=== PATIENT | female | born 1945 | race Caucasian/White ===

== ENCOUNTER → 2017-07-20 | Day surgery (SDC) | payer MEDICARE ==
[2017-07-19 14:16] LABS: BASOPHILS % 0.4 % (0.0-1.0); EOSINOPHILS # (AUTO) 0.1 (0.0-0.4); EOSINOPHILS % 1.5 % (0.0-6.0); HEMATOCRIT 36.3 % (34.2-44.1); HEMOGLOBIN 11.3 g/dL (12.0-16.0); LYMPHOCYTES # (AUTO) 1.3 (1.0-3.2); LYMPHOCYTES % 15.9 % (18.0-39.1); MEAN CORPUSCULAR HEMOGLOBIN 27.3 pg (28-32); MEAN CORPUSCULAR HGB CONC 31.1 g/dL (31-35); MEAN CORPUSCULAR VOLUME 87.7 fL (81-99); MONOCYTES # (AUTO) 0.8 (0.2-0.8); MONOCYTES % 9.8 % (4.4-11.3); NEUTROPHILS # (AUTO) 5.9 (2.1-6.9); NEUTROPHILS % 72.2 % (38.7-80.0); PLATELET COUNT 208 x10e3/uL (140-360); RED BLOOD COUNT 4.14 x10e6/uL (3.6-5.1); RED CELL DISTRIBUTION WIDTH 14.6 % (11.7-14.4)
[~2017-07-20] MED LIST: ASPIR 8181 MG PO; BYSTOLIC10 MG PO; CARAFATE1 GM/10 ML PO; FENTANYL CITRATE/PF 100MCG/2 ML INJ ONE; FORTAMET500 MG PO; LEXAPRO20 MG PO; LIDOCAINE HCL 2% LOCAL INJ 5 ML SDV VIAL INJ ONE; METOPROLOL SUCC25 MG PO; MIDAZOLAM HCL 2 MG/2 ML VIAL ONE; MULTIPLE VITAM1 EAC1 PO; PANTOPRAZOLE SO40 MG PO; PROPOFOL IV EMULSION 10 MG/ML 50 ML VIAL ONE; PROTONIX40 MG/ML PO; TEKTURNA HCT 31 EACH PO; TYLENOL WITH C1 EACH PO; VITAMIN E400 UNI2 PO; WELLBUTRIN75 MG PO; ZOFRAN ODT4 MG SL
--- OUTSIDE RECORDS SUMMARY | 2017-07-20 08:13 | XMS REPORT ---
Author [facility] Address Unknown Phone Unavailable Care Team Providers Care Varnish Remover Name Role Phone TATIANA RAMIREZ Unavailable Unavailable SEVERINO ALBERT Unavailable Unavailable Problems This patient has no known problems. Allergies, Adverse Reactions, Alerts This patient has no known allergies or adverse reactions. Medications This patient has no known medications. Results Test Description Test Time Test Comments Text Results Atomic Results Result Comments G I BLEED [place] [address] Patient Name: ROSALINDA MORENO MR #: [id number] : 1945 Age/Sex: 71/F Req #: [id number] [facility] Physician: TATIANA RAMIREZ MD Ordered by: MISAEL WAY MD Report #: [id number] Location: [facility] Room/Bed: [place] [address] Procedure: [id number] NM/G I BLEED Exam Date: 05/17/17 Exam Time: 1300 REPORT STATUS: Signed Tagged-RBC GI Bleed Study Clinical information: 71-year-old female with recurrent GI bleeding. EGD last week showed an ulcer. Now again having bloody stool. Discussion: The patient's own red blood cells were labeled with 25 mCi of technetium-99m pertechnetate using the in vitro method (UltraTag). Dynamic images of the abdomen were obtained through 60 minutes. Distribution of tracer activity appears physiologic throughout the abdomen. No abnormal accumulation of tracer is seen within the gastrointestinal lumen. Impression: No scan evidence of active gastrointestinal bleeding at this time. Signed by : Dr. Stoney Cardoso M.D. on 05/17/2017 6:18 PM Dictated By: STONEY CARDOSO MD 17 Transcribed By: JOSE on 05/17/171817 COPY TO: MISAEL WAY MD CHEST SINGLE (PORTABLE) [place] [address] Patient Name: ROSALINDA MOERNO MR #: [id number] : 1945 Age/Sex: 71/F Req #: [id number] Adm Physician: Ordered by: SRINIVASAN BENITEZ Report #: [id number] Location: ER Room/Bed: Procedure: [id number] DX/CHEST SINGLE (PORTABLE) Exam Date: 05/10/17 Exam Time: 1115 REPORT STATUS: Signed PROCEDURE: A single AP view of the chest. COMPARISON: [facility], , CHEST 2 VIEWS, 07/20/2012, 14:36. INDICATIONS: NEAR SYNCOPE, BLACK STOOLS FINDINGS: Lines/tubes: None. Lungs: The lungs are well inflated and clear. There is no evidence of pneumonia or pulmonary edema. Pleura: There is no pleural effusion or pneumothorax. Heart and mediastinum: Cardiac silhouette is unremarkable. Pulmonary vasculature is normal. Bones: No acute bony abnormality. IMPRESSION: 1. No acute cardiopulmonary abnormalities. Samaria Mason M.D. Dictated by: Samaria Mason M.D. on 05/10/2017 at 11:45 Electronically approved by: Samaria Mason M.D. on 05/10/2017 at 11:45 Dictated By: SAMARIA MASON MD 1145 Transcribed By: MIKE on 05/10/17 1145 COPY TO: SRINIVASAN BENITEZ
--- NOTE | 2017-07-20 13:09 | Operative Report ---
DATE OF PROCEDURE: July 20, 2017 REFERRING PHYSICIAN: Dr. Naomie Juares PROCEDURE PERFORMED: Esophagogastroduodenoscopy with biopsies. INDICATIONS FOR EGD: History of anastomotic ulcer, patient is status post Mallory-en-Y, and history of melena. MEDICATION: Patient was done under MAC. Please see anesthesiologist's note. PROCEDURE: With the patient in the left lateral decubitus position, the flexible fiberoptic Olympus gastroscope was introduced into the esophagus under direct visualization without any difficulty. The esophagus appeared to be within normal limits. The scope was then advanced with ease into the stomach. The Mallory-en-Y anastomosis was noted and was intact. There was some focal nodularity at the anastomosis and that was biopsied. The previously described ulcer appears to have healed. Enteric loop was patent. The scope was subsequently withdrawn. Patient tolerated the procedure well. IMPRESSION 1. Normal esophagus. 2. Status post Mallory-en-Y, anastomosis intact. 3. Focal nodularity anastomosis, biopsied. Previously described ulcer well healed. PLAN: Follow up histology. Continue current therapy. Job#: [id number] RI cc:NAOMIE JUARES MD
== END | disposition home or self-care (01) ==
LOC: OR 08:10
PROVIDERS: ATTEND Internal Medicine Gastroenterology
DX: D64.9 Anemia, unspecified (principal); K29.50 Unspecified chronic gastritis without bleeding; K25.9 Gastric ulcer, unspecified as acute or chronic, without hemorrhage or perforation; Z98.84 Bariatric surgery status; K31.89 Other diseases of stomach and duodenum; K21.9 Gastro-esophageal reflux disease without esophagitis; E11.9 Type 2 diabetes mellitus without complications; I10 Essential (primary) hypertension; F32.9 Major depressive disorder, single episode, unspecified; Z01.812 Encounter for preprocedural laboratory examination
CPT/HCPCS: 36415 ×2; 43239; 82948; 85025; J2001; J2250

== ENCOUNTER → 2017-10-18 | Outpatient (CLI) | payer MEDICARE ==
[~2017-10-18] MED LIST changes: -FENTANYL CITRATE/PF 100MCG/2 ML INJ ONE; -LIDOCAINE HCL 2% LOCAL INJ 5 ML SDV VIAL INJ ONE; -MIDAZOLAM HCL 2 MG/2 ML VIAL ONE; -PROPOFOL IV EMULSION 10 MG/ML 50 ML VIAL ONE
--- NOTE | 2017-10-21 08:57 | Diagnostic Imaging Report ---
#[id number] - [id number] #BILATERAL DIGITAL SCREENING MAMMOGRAM WITH CAD: 10/18/2017 CLINICAL: Routine screening. Comparison is made to exams dated: 11/26/2015 mammogram and 09/06/2014 mammogram - [facility]. Current study contains 4 films. The tissue of both breasts is heterogeneously dense. This may lower the sensitivity of mammography. Current study was also evaluated with a Computer Aided Detection (CAD) system. There are benign calcifications in both breasts. There are scar markers on both breasts. Vascular calcifications. No significant masses, calcifications, or other findings are seen in either breast. There has been no significant interval change. IMPRESSION: BENIGN There is no mammographic evidence of malignancy. A 1 year screening mammogram is recommended. The patient will be notified by letter of the results. eFr Hood Jr., D.O. cw/:10/20/2017 12:12:58 Analyzer Sales: Marie GALDAMEZ(Marcos)(M), [facility] letter sent: Compared to Prior B9 Mammogram BI-RADS: 2 Benign
== END ==
LOC: MAMMO 12:44
PROVIDERS: ATTEND Internal Medicine
DX: Z12.31 Encounter for screening mammogram for malignant neoplasm of breast (principal)
CPT/HCPCS: 77067

== ENCOUNTER → 2018-02-01 | Outpatient (CLI) | payer MEDICARE ==
--- NOTE | 2018-02-01 11:50 | Diagnostic Imaging Report ---
PROCEDURE:X-RAY ABDOMEN - KUB COMPARISON:None. INDICATIONS:PREVIOUS BLADDER INFECTION, CHECKING FOR STONES FINDINGS: Bowel gas partially obscures bilateral kidneys. There is a 2 mm calcification overlying the left kidney. No other calcifications seen overlying the urinary system. There is abundant stool in the colon. Non-obstructive bowel gas pattern. Status post cholecystectomy. Post surgical anastomotic changes in the left lower abdomen. No acute osseous abnormality. CONCLUSION: Possible 2 mm left renal stone. Dictated by: TAMI GUY M.D. on 02/01/2018 at 11:56 Electronically approved by: TAMI GUY M.D. on 02/01/2018 at 11:56
== END ==
LOC: RAD 11:03
PROVIDERS: ATTEND Urology
DX: N20.0 Calculus of kidney (principal)
CPT/HCPCS: 74018

== ENCOUNTER 2018-05-06 20:27 | Inpatient (IN) | payer MEDICARE, OTHER ==
[~2018-05-06] VITALS: Ht 167.6 cm; Wt 68.5 kg
[2018-05-06] MEDS: CLONIDINE HCL 0.1 MG TAB PO PRN (11:59)
[2018-05-06] MEDS ORDERED: SODIUM CHLORIDE 0.9% 1000ML 1,000 ML ONE ×2 (20:33→21:56)
[2018-05-06] MEDS ORDERED: SODIUM CHLORIDE 0.9% 1000ML 1,000 ML IV STA (20:34)
[2018-05-06] MEDS ORDERED: DILTIAZEM HCL 5 MG/ML 5 ML VIAL IV STA (20:34)
[2018-05-06] MEDS ORDERED: DILTIAZEM HCL VIAL 5 ML ONE (20:35)
[2018-05-06] MEDS ORDERED: ASPIRIN 81 MG CHEW TAB PO ONE (20:45)
[2018-05-06 21:02] LABS: BASOPHILS # (AUTO) 0.1 (0.0-0.1); BASOPHILS % 0.5 % (0.0-1.0); EOSINOPHILS # (AUTO) 0.1 (0.0-0.4); EOSINOPHILS % 0.7 % (0.0-6.0); HEMATOCRIT 36.1 % (34.2-44.1); HEMOGLOBIN 11.8 g/dL (12.0-16.0); LYMPHOCYTES % 28.3 % (18.0-39.1); MEAN CORPUSCULAR HGB CONC 32.7 g/dL (31-35); MEAN CORPUSCULAR VOLUME 85.7 fL (81-99); MONOCYTES % 9.6 % (4.4-11.3); NEUTROPHILS # (AUTO) 6.4 (2.1-6.9); NEUTROPHILS % 60.6 % (38.7-80.0); PLATELET COUNT 252 x10e3/uL (140-360); RED BLOOD COUNT 4.21 x10e6/uL (3.6-5.1); RED CELL DISTRIBUTION WIDTH 14.4 % (11.7-14.4)
[2018-05-06 21:10] LABS: INR 0.95; PARTIAL THROMBOPLASTIN TIME 27.1 seconds (23.8-35.5); PROTHROMBIN TIME 13.6 seconds (11.9-14.5)
[2018-05-06] MEDS ORDERED: AMIODARONE 900MG 500 ML IV ONE (21:15)
[2018-05-06] MEDS ORDERED: AMIODARONE HCL 150MG 100 ML IV ONE (21:15)
[2018-05-06] MEDS ORDERED: AMIODARONE HCL 100 ML IV ONE (21:16)
[2018-05-06 21:19] LABS: ALBUMIN 4.1 g/dL (3.5-5.0); ALBUMIN/GLOBULIN RATIO 1.6 (0.8-2.0); ANION GAP 18.8 mmol/L (8-16); CALCIUM 9.7 mg/dL (8.4-10.2); CREATININE, SERUM 1.16 mg/dL (0.57-1.11); MAGNESIUM 1.5 MG/DL (1.3-2.1); POTASSIUM 3.8 mmol/L (3.5-5.1)
--- NOTE | 2018-05-06 21:27 | Diagnostic Imaging Report ---
EXAMINATION: CHEST SINGLE (PORTABLE) INDICATION: Tachycardia COMPARISON: None FINDINGS: AP view TUBES and LINES: None. LUNGS: Lungs are well inflated. Lungs are clear. There is no evidence of pneumonia or pulmonary edema. PLEURA: No pleural effusion or pneumothorax. HEART AND MEDIASTINUM: The cardiomediastinal silhouette is unremarkable. BONES AND SOFT TISSUES: No acute osseous lesion. Soft tissues are unremarkable. UPPER ABDOMEN: No free air under the diaphragm. IMPRESSION: No acute thoracic abnormality. Signed by: DR. Arnel Wilson MD on 05/06/2018 9:24 PM
[2018-05-06] MEDS ORDERED: AMIODARONE 900MG 500 ML IV SCH (21:30)
[2018-05-06 21:39] LABS: CREATINE KINASE MB 1.3 ng/mL (0-5.0); THYROID STIMULATING HORMONE 1.193 uIU/mL (0.350-4.940)
[2018-05-06] MEDS ORDERED: MIDAZOLAM HCL 2 MG/2 ML VIAL ONE (21:54)
[2018-05-06 21:55] LABS: BILIRUBIN,URINE NEGATIVE (NEGATIVE); CLARITY,URINE CLEAR (CLEAR); COLOR,URINE YELLOW (YELLOW); KETONES,URINE TRACE (NEGATIVE); LEUKOCYTE ESTERASE ,URINE NEGATIVE (NEGATIVE); NITRITE,URINE NEGATIVE (NEGATIVE); PROTEIN,URINE DIPSTICK NEGATIVE (NEGATIVE); URINE UROBILINOGEN 0.2 mg/dL (0.2 - 1)
[2018-05-06] MEDS ORDERED: BIVALRIUDIN 250 MG/VIAL VIAL IV ONE (21:55)
[2018-05-06] MEDS ORDERED: FENTANYL CITRATE/PF 100MCG/2 ML INJ ONE (21:55)
[2018-05-06] MEDS ORDERED: SODIUM CHLORIDE 0.9% 50ML 0 ML ONE (21:55)
[2018-05-06] MEDS ORDERED: LIDOCAINE HCL 2% LOCAL 20 ML VIAL ONE (21:55)
[2018-05-06] MEDS ORDERED: NITROGLYCERIN/D5W 200 MCG/ML 0 ML ONE (21:56)
[2018-05-06] MEDS ORDERED: IOPAMIDOL 370 MG/ML 200 ML INFUS..BTL INJ ONE (21:56)
[2018-05-06] MEDS ORDERED: HEPARIN SOD/SOD CHLORIDE 2,000 ML ONE (21:56)
[2018-05-06 22:03] LABS: BACTERIA,URINE RARE /HPF; EPITHELIAL CELLS,URINE FEW /LPF; RBC,URINE 0-5 /HPF (0-5); WBC,URINE (MAN) 0-5 /HPF (0-5)
[2018-05-06 22:04] LABS: MUCUS,URINE FEW (RARE)
[2018-05-06 23:00] VITALS: BP 151/104
[2018-05-06] MEDS ORDERED: HYDROCODONE/APAP 5MG-325MG TAB PO PRN (23:00)
[2018-05-06] MEDS ORDERED: ZOLPIDEM TARTRATE 5 MG TAB PO PRN (23:00)
[2018-05-06] MEDS ORDERED: ONDANSETRON HCL INJ 2 MG/ML VIAL IV PRN (23:00)
[2018-05-06] MEDS: SODIUM CHLORIDE 0.9% 1000ML 1,000 ML IV SCH (23:00)
[2018-05-06 23:02] VITALS: BP 151/104
[2018-05-06 23:25] VITALS: BP 160/114
[2018-05-06 23:40] VITALS: BP 171/111
[2018-05-06 23:55] VITALS: BP 157/85
[2018-05-07] VITALS (87 sets, daily range): BP systolic 101–162; BP diastolic 47–111
--- NOTE | 2018-05-07 00:38 | Consultation ---
DATE OF CONSULTATION: May 06, 2018 CARDIOLOGY CONSULTATION REASON FOR CONSULTATION: Chest pain, AFib with RVR and ischemic EKG changes. HISTORY OF PRESENT ILLNESS: Ms. 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 The patient was in her usual state of health up until earlier today. 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 The patient also reported subjective palpitations. She came into the emergency room where she was noted to be in AFib with RVR with diffuse 4 to 5-mm ST segment depression throughout with a heart rate in the 170s and blood pressure 70s/40s. She was given IV fluid bolus, started her on amiodarone drip, which has slowed down her heart rate and improved her subjective chest pain symptoms; however, still appears to have some dynamic inferolateral T-wave changes. Emergent cardiac consultation was obtained and visiting with the patient. We had a long discussion today in terms of differential diagnosis as well as management options and we will be shortly proceeding with emergent cardiac catheterization on account of her symptoms. Her hemodynamics are little bit better with blood pressure 90s/50s with heart rates in the 120s range. PAST MEDICAL HISTORY 1. Hypertension, essential. 2. Hypercholesterolemia. 3. Type 2 diabetes. 4. 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 Hunter in September of 2016. PAST SURGICAL HISTORY 1. History of hysterectomy in 1994. 2. History of gastric bypass surgery in 2005. 3. History of appendectomy in 1963. 4. History of breast biopsies in 1979. FAMILY HISTORY: Mother at 78 with COPD complications. Father at the age of 66 from heart attack and was a heavy smoker. SOCIAL HISTORY: She is . She is lifelong nonsmoker. Denies any alcohol or illicit drug use. 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 ALLERGIES: No known drug allergies. CURRENT MEDICATIONS: 1. Metoprolol 25 mg b.i.d. 2. Aspirin 81 mg daily. 3. Metformin 500 mg b.i.d. 4. Wellbutrin 150 mg daily. REVIEW OF SYSTEMS GENERAL: Positive for fatigue, malaise, and generalized weakness. Denies any fevers or chills. HEENT: Has lightheadedness. No headaches, visual complaints, or sore throat. RESPIRATORY: Denies any pleuritic chest pain. Has shortness of breath. CARDIOVASCULAR: As per HPI. GI: Denies any abdominal pain, bright red blood per rectum, melena, or hematemesis. HEMATOLOGY: Denies any easy bruising or bleeding. ID: No known infectious issues. ENDOCRINE: No heat or cold intolerance. NEUROLOGIC: Denies any focal weakness, numbness, tingling, seizures, headache, TIA or stroke. The remainder of the review of systems is negative, otherwise as mentioned. PHYSICAL EXAMINATION VITAL SIGNS: Height of 5 feet 4 inches, weight of approximately 140 pounds, blood pressure was 100s/60s, pulse currently in the 120s, respiratory rate of 18, O2 sat 97% on room air. GENERAL: This is a well-nourished, well-developed lady who is currently in mild distress. HEENT: Normocephalic and atraumatic. Pupils are equal, round, and reactive to light. Extraocular movements are intact. Oropharynx is clear. NECK: No elevation of jugular venous pulsation. No carotid bruits. CARDIOVASCULAR: Irregularly irregular rate and rhythm. Normal S1 and S2. A soft 2/6 systolic murmur at the left lower sternal border. LUNGS: Decreased bibasilar breath sounds. ABDOMEN: Soft, nontender, and nondistended. Normoactive bowel sounds. BACK: No costovertebral angle tenderness. EXTREMITIES: Warm with 1 to 2+ bilateral femoral pulses, 1+ pedal pulses, and 1+ radial pulses. PSYCH: Normal fluent speech. Little bit anxious. No depression. LAB DATA: Pending. DIAGNOSTIC DATA: EKGs reviewed. Initial EKG reveals atrial fibrillation with rapid ventricular response and diffuse [address] depression and elevation in I and aVL concerning for diffuse subendocardial ischemia perhaps left main equivalent CAD. IMPRESSION 1. Unstable angina/acute coronary syndrome type clinical picture with high risk features of hypotension, near syncope and EKG concerning for multi-vessel CAD versus left main disease. 2. SVT, currently with AFib with RVR. 3. History of AV sissy reentry tachycardia ablation. 4. Type 2 diabetes. 5. Positive family history of coronary disease in the father. PLAN/RECOMMENDATIONS 1. From a cardiovascular standpoint in light of her very significant EKG changes, we will proceed with urgent cardiac catheterization to elucidate for the presence of clinically significant coronary artery disease. 2. After establishing her coronary status, we will then focus our attention towards her rhythm issues. 3. In the meantime, we will continue amiodarone therapy. 4. Aggressive risk factor modification and medical therapy. 5. Further plans/recommendations to follow. Job#: [id number] DOMINICK
[2018-05-07] MEDS ORDERED: PNEUMOCOCCAL VACCINE POLYVALENT 23 MCG/0.5 ML VIAL IM ONE (01:00)
[2018-05-07] MEDS ORDERED: AMIODARONE 900MG 500 ML IV SCH (03:30)
[2018-05-07 04:55] LABS: BASOPHILS % 0.4 % (0.0-1.0); EOSINOPHILS % 0.6 % (0.0-6.0); HEMATOCRIT 33.1 % (34.2-44.1); HEMOGLOBIN 10.5 g/dL (12.0-16.0); LYMPHOCYTES # (AUTO) 1.4 (1.0-3.2); LYMPHOCYTES % 20.9 % (18.0-39.1); MEAN CORPUSCULAR HEMOGLOBIN 27.5 pg (28-32); MEAN CORPUSCULAR HGB CONC 31.7 g/dL (31-35); MEAN CORPUSCULAR VOLUME 86.6 fL (81-99); MONOCYTES # (AUTO) 0.7 (0.2-0.8); MONOCYTES % 10.6 % (4.4-11.3); NEUTROPHILS # (AUTO) 4.5 (2.1-6.9); NEUTROPHILS % 67.2 % (38.7-80.0); RED BLOOD COUNT 3.82 x10e6/uL (3.6-5.1); RED CELL DISTRIBUTION WIDTH 14.5 % (11.7-14.4)
[2018-05-07 04:57] LABS: PLATELET COUNT 171 x10e3/uL (140-360)
[2018-05-07 05:25] LABS: CREATINE KINASE MB 1.9 ng/mL (0-5.0)
[2018-05-07 05:49] LABS: ALANINE AMINOTRANSFERASE 9 IU/L (0-55); ALBUMIN 3.4 g/dL (3.5-5.0); ALBUMIN/GLOBULIN RATIO 1.5 (0.8-2.0); ALKALINE PHOSPHATASE 62 IU/L (40-150); ANION GAP 14.4 mmol/L (8-16); BLOOD UREA NITROGEN 17 mg/dL (7-26); BUN/CREATININE RATIO 20 (6-25); CALCIUM 8.4 mg/dL (8.4-10.2); CARBON DIOXIDE 23 mmol/L (22-29); CHLORIDE 102 mmol/L (98-107); CHOL/HDL RATIO 3.1 (3.0-3.6); CHOLESTEROL 161 MD/DL (0-199); CREATININE, SERUM 0.83 mg/dL (0.57-1.11); EST GLOMERULAR FILTRATION RATE > 60 ML/MIN (60-); GLUCOSE 163 mg/dL (74-118); HDL CHOLESTEROL 52 MG/DL (40-60); LDL CHOLESTEROL 94 MG/DL (60-130); POTASSIUM 3.4 mmol/L (3.5-5.1); SODIUM 136 mmol/L (136-145); TRIGLYCERIDES 74 MG/DL (0-149)
[2018-05-07] MEDS ORDERED: SUCRALFATE 1 GM/10 ML SUSP PO SCH (09:00)
[2018-05-07] MEDS: BUPROPION HCL 75 MG TAB PO SCH ×2 (09:10→16:47)
[2018-05-07] MEDS: PANTOPRAZOLE SOD 40 MG TABEC PO SCH ×2 (09:10→16:47)
[2018-05-07] MEDS: METOPROLOL TARTRATE 25 MG TAB PO SCH ×3 (09:10→18:51)
[2018-05-07] MEDS: MULTIVITAMINS/MINERALS TAB PO SCH (09:10)
[2018-05-07] MEDS: ESCITALOPRAM OXALATE 10 MG TAB PO SCH (09:20)
[2018-05-07] MEDS: SODIUM CHLORIDE 0.9% 1000ML 1,000 ML IV SCH (09:30)
[2018-05-07] MEDS ORDERED: DEXTROSE 50% SYRINGE 50 ML IV PRN (10:45)
[2018-05-07] MEDS ORDERED: POTASSIUM CHLORIDE 20 MEQ TAB CR PO ONE ×2 (10:46→11:30)
--- NOTE | 2018-05-07 12:54 | History and Physical ---
PRIMARY CARE PHYSICIAN: Dr. Naomie Morales. MACHINE EDGE BANDER: Dr. Huseyin Gallo. CHIEF COMPLAINT: Atrial fibrillation with rapid ventricular rate response associated with EKG changes and chest pain. HISTORY OF PRESENT ILLNESS: This is a 72-year-old female came into the hospital with chest pain, atrial fibrillation with RVR and ischemic EKG changes. The patient has history of hypertension, type 2 diabetes and prior history of AV sissy reentry tachycardia and SVT with the previous AV sissy reentry ablation on September 23, 2016. The patient was doing well until she had symptoms of substernal chest pain, pressure, tightness, heaviness and diaphoretic, very weak, which brought the patient to the hospital. In the emergency room, the patient noticed to have atrial fibrillation with rapid rate and she will have diffuse [address] segment depression. Blood pressure was diminished in the 70s to 80s systolic with heart rate in the 171 to 180s beats per minute. The patient did receive IV bolus of fluid. IV amiodarone started. She underwent cardiac catheterization done. Ejection fraction approximately 50%. There is no intervention since there is no critical stenosis. The patient is otherwise stable at this time. She remained in ICU on amiodarone drip. PAST MEDICAL HISTORY: Essential hypertension, dyslipidemia, diabetes type 2, SVT with previous ablation with in September 2016. It was AV-sissy reentry tachycardia. PAST SURGICAL HISTORY: Status post hysterectomy is 1994, gastric bypass surgery in 2005, appendectomy in 1963. Breast biopsy benign in 1979. FAMILY HISTORY: Significant for coronary disease in her father, who was however a smoker along with her mother as well. SOCIAL HISTORY: Patient does not smoke or use alcohol. No recreational drug use. 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 PHYSICAL EXAMINATION VITAL SIGNS: Temperature is 98, blood pressure 111/88, pulse rate 57 on amiodarone drip, respirations 16, saturation 98% on room air. GENERAL: The patient is not in acute distress. She is awake. HEENT: Normocephalic, atraumatic. NECK: Supple grossly. PULMONARY: Diminished breath sounds; however, without any wheezing or rales. CARDIOVASCULAR: Some bradycardia sinus rhythm on beta cherie and amiodarone drip at this time. NEUROLOGIC: No gross focal deficit. LABORATORY: Sodium 136, potassium 3.4, chloride 102, bicarb 23, BUN 17, creatinine 0.8, and glucose 163. WBC 6.7, hemoglobin 10.5, hematocrit 3.1, and platelets is 171. IMPRESSION 1. Substernal chest pain with EKG changes as mentioned above status post cardiac catheterization. No PCI. No critical stenosis of coronary arteries. Ejection fraction 60%. 2. Atrial fibrillation with rapid ventricular rate response, ongoing treatment now. The patient has bradycardia secondary to medication treatment, asymptomatic; however. 3. Multiple chronic baseline problems including previous AV sisys ablation with SVT. 4. Diabetes type 2. 5. Hypertension. PLAN: Continue current management. We will followup on recommendations. Patient may need anticoagulant therapy. We will continue with cardiac medication per Dr. Huseyin Gallo and we will check the patient's thyroid function test as well. The patient will remain in hospital at this time. Job#: [id number] FRANTZ
[2018-05-07] MEDS: INSULIN LISPRO 100 UNIT/1 ML 3ML VIAL SQ SCH ×3 (13:00→20:40)
[2018-05-07 13:57] LABS: CREATINE KINASE MB 1.7 ng/mL (0-5.0)
[2018-05-07] MEDS: DRONEDARONE 400 MG TAB PO SCH (16:48)
[2018-05-07] MEDS: APIXAB 2.5 MG TABLET PO SCH (16:49)
--- NOTE | 2018-05-07 19:11 | Consultation ---
DATE OF CONSULTATION: May 07, 2018 REASON FOR CONSULTATION: AFib, rapid ventricular response. HISTORY: Ms. Gutiérrez is a pleasant 72-year-old woman, known to me from before when she had AVNRT and was successfully ablated. She came in last night with AFib, rapid ventricular response, and EKG changes which appears to be a demand ischemia. Dr. Huseyin Gallo performed an emergency cardiac catheterization, which showed distal disease, but no acute PR or plaque rupture. She is back in normal sinus rhythm and feeling much better. PAST MEDICAL HISTORY: AVNRT, distal coronary artery disease, atrial fibrillation, hypertension. SOCIAL HISTORY: No drugs or smoking. FAMILY HISTORY: Negative for or atrial fibrillation. REVIEW OF SYSTEMS: As above and otherwise negative for fevers, chills, loss of vision, blurry vision, ear pain, ear discharge, headache, numbness. Positive for chest pain, palpitation. Negative for cough, sputum, nausea, vomiting, dysuria, frequency, rash, bruise, bleeding, clots, anxiety, depression, heat or cold intolerance. PHYSICAL EXAMINATION VITAL SIGNS: Blood pressure 125/78, heart rate is 68 beats per minute. GENERAL: Patient is lying in bed in no apparent distress. NECK: No lymphadenopathy. Thyroid exam is normal. CARDIOVASCULAR: S1, S2. LUNGS: Clear bilaterally. ABDOMEN: Soft, benign. EXTREMITIES: Warm and dry. NEURO: Nonfocal. SKIN: No new rash. PSYCH: No anxiety or depression. Current EKGs is normal sinus rhythm. EKG from last night sowed AFib, rapid ventricular response and EKG changes. ASSESSMENT AND PLAN: A 72-year-old woman with atrial fibrillation, rapid ventricular response, CHADS-VASc of 4, came in with atrial fibrillation, highly symptomatic. She is appropriately started on Multaq and Eliquis and currently feeling better due to her distal coronary artery disease and rapid ventricular response, which made her very symptomatic and caused demand ischemia as evident on EKG. She would benefit from a more definitive therapy, especially now that it is in the early stages of her AFib. I discussed this with Dr. Huseyin Gallo and I discussed this with patient. In the meantime, we will keep her on metoprolol, Multaq, and Eliquis. I will go ahead and set her up for pulmonary vein isolation and I discussed the risks and benefits with her. She understands and wants to proceed. In summary, continue metoprolol, Multaq, Eliquis. We will do outpatient pulmonary vein isolation. Job#: [id number] PATY
[2018-05-07] MEDS: ACETAMINOPHEN 325 MG TAB PO PRN (20:42)
[2018-05-08] VITALS: BP 161/83
[2018-05-08 00:16] VITALS: BP 149/62
[2018-05-08] MEDS: CLONIDINE HCL 0.1 MG TAB PO PRN (05:15)
[2018-05-08] MEDS: ACETAMINOPHEN 325 MG TAB PO PRN (05:20)
[2018-05-08 05:26] VITALS: BP 169/79
[2018-05-08 06:15] LABS: BASOPHILS % 0.4 % (0.0-1.0); EOSINOPHILS # (AUTO) 0.1 (0.0-0.4); EOSINOPHILS % 1.3 % (0.0-6.0); HEMATOCRIT 33.7 % (34.2-44.1); HEMOGLOBIN 10.4 g/dL (12.0-16.0); LYMPHOCYTES # (AUTO) 1.5 (1.0-3.2); LYMPHOCYTES % 27.6 % (18.0-39.1); MEAN CORPUSCULAR HEMOGLOBIN 26.7 pg (28-32); MEAN CORPUSCULAR HGB CONC 30.9 g/dL (31-35); MEAN CORPUSCULAR VOLUME 86.6 fL (81-99); MONOCYTES # (AUTO) 0.6 (0.2-0.8); MONOCYTES % 10.8 % (4.4-11.3); NEUTROPHILS # (AUTO) 3.2 (2.1-6.9); NEUTROPHILS % 59.7 % (38.7-80.0); PLATELET COUNT 162 x10e3/uL (140-360); RED BLOOD COUNT 3.89 x10e6/uL (3.6-5.1); RED CELL DISTRIBUTION WIDTH 14.4 % (11.7-14.4)
[2018-05-08 06:32] LABS: ANION GAP 11.9 mmol/L (8-16); BLOOD UREA NITROGEN 13 mg/dL (7-26); BUN/CREATININE RATIO 16 (6-25); CALCIUM 8.7 mg/dL (8.4-10.2); CARBON DIOXIDE 25 mmol/L (22-29); CHLORIDE 106 mmol/L (98-107); CREATININE, SERUM 0.79 mg/dL (0.57-1.11); EST GLOMERULAR FILTRATION RATE > 60 ML/MIN (60-); GLUCOSE 127 mg/dL (74-118); POTASSIUM 3.9 mmol/L (3.5-5.1); SODIUM 139 mmol/L (136-145)
[2018-05-08 08:23] VITALS: BP 142/74
--- NOTE | 2018-05-08 08:26 | Operative Report ---
DATE OF PROCEDURE: May 06, 2018 PROCEDURES PERFORMED 1. Left heart cardiac catheterization with coronary angiography. 2. Left ventriculography. INDICATION FOR PROCEDURE: This is a 72-year-old lady with a history of hypertension, type 2 diabetes, hypercholesterolemia, and positive family history of coronary artery disease with father dying of heart attack in his 60s, who presents to this institution with hypotension, atrial fibrillation with RVR and diffuse ST depression throughout the precordial leads concerning for perhaps left main STEMI equivalent. Patient has significant chest pain and tightness, concerning for angina. DESCRIPTION OF PROCEDURE: After risks, benefits, pros and cons of today's procedure were explained, patient agreed to proceed. Patient was brought to the cardiac catheterization laboratory in an urgent/emergent fashion and the right groin was prepped and draped in the usual sterile fashion. A 1% lidocaine solution was used to numb the right groin region. Access to the right femoral artery was obtained and a 4-[place] femoral sheath was placed. Selective coronary angiography of the [place] left and right coronary arteries was performed with a JL-4 and 3DRC diagnostic catheters respectively. Afterwards, an angled pigtail catheter was placed into the ventricle for ventriculography and hemodynamic assessment of ventricular filling pressures. Coronary angiography revealed just very mild and minimal disease and there is no clear-cut culprit artery. Left ventriculography reveals normal left ventricular function and there was no segmental wall. At conclusion of the case due to the presence of a very small 4-[place] sheath femoral sheath, we decided to utilize manual compression and the 4-[place] femoral sheath was removed and manual compression was applied successfully achieving hemostasis. COMPLICATIONS: None. ESTIMATED BLOOD LOSS: None. FINDINGS 1. Left main is angiographically normal and gives rise to an LAD and circumflex branch. 2. The LAD has just very mild luminal irregularities at the apical segment of the vessels. The remainder of this vessel and its branches are with no significant disease. 3. Left circumflex artery gives rise to a large bifurcating anterolateral/mid marginal branch with just mild proximal disease. The remainder of this vessel and its branches are angiographically normal. 4. The RCA is large, dominant, gives rise to the right PDA and 3 right PLV branches. This vessel and its branches are angiographically normal. 5. Left ventricular ejection fraction was 60%-65% with end-diastolic pressure of 18 mmHg. There is no significant LV to aortic pullback gradient. PLAN/RECOMMENDATIONS 1. Overall, patient's presenting EKG was highly suggestive severe diffuse subendocardial ischemia and due to the presence of typical anginal chest pain and hypotension, the patient was highly suggestive of having unstable coronary syndrome. In retrospect, the EKG changes are related to RVR from atrial fibrillation due to hypotension. At the present time, we will just switch focus to manage her rhythm issues. 2. A 6-hour bed rest post cardiac catheterization today. 3. Amiodarone drip for tonight. We will reevaluate her tomorrow morning. If we are going to introduce anticoagulant therapy. 4. Patient has had a previous AVNRT ablation performed in the past and had seen EP. We will have a low threshold to get them involved for their recommendations. 5. It might be put the patient in the ICU for further care and management. Job#: [id number] PATY
[2018-05-08] MEDS: BUPROPION HCL 75 MG TAB PO SCH (08:33)
[2018-05-08] MEDS: MULTIVITAMINS/MINERALS TAB PO SCH (08:34)
[2018-05-08] MEDS: ESCITALOPRAM OXALATE 10 MG TAB PO SCH (08:34)
[2018-05-08] MEDS: DRONEDARONE 400 MG TAB PO SCH (08:34)
[2018-05-08] MEDS: PANTOPRAZOLE SOD 40 MG TABEC PO SCH (08:34)
[2018-05-08] MEDS: APIXAB 2.5 MG TABLET PO SCH (08:34)
[2018-05-08] MEDS: INSULIN LISPRO 100 UNIT/1 ML 3ML VIAL SQ SCH (08:35)
[2018-05-08 08:59] VITALS: BP 142/74
[2018-05-08] MEDS ORDERED: METOPROLOL TARTRATE 25 MG TAB PO SCH (09:00)
[2018-05-08] MEDS ORDERED: MULTAQ400 MG PO (09:50)
[2018-05-08] MEDS ORDERED: [UNRECOGNIZED DRUG - OTHER] PO (09:51)
--- NOTE | 2018-05-08 15:13 | Discharge Summary ---
PRIMARY CARE PHYSICIAN: Naomie Morales MD SPECIMEN TRANSPORTER: Huseyin Gallo MD FINAL DIAGNOSES 1. Atrial fibrillation with rapid ventricular rate response, status post amiodarone loading. 2. Significant electrocardiographic changes consistent with acute unstable angina, acute ischemia status post cardiac catheterization. No percutaneous coronary intervention. Coronary arteries without any blockage. SUMMARY: This 72-year-old female had severe EKG changes with ischemia with ST depression. She also has atrial fibrillation. Rate was rapid in the 170s beats per minute. Patient was immediately brought to emergent cardiac catheterization. However, her coronaries were without any significant blockage; therefore, no PCI. The patient was loaded with amiodarone. She is stable now. She is placed on Eliquis 2.5 mg twice a day and amiodarone loading at this time. She will go home with 200 mg twice a day. Patient is stable. She will follow up with Dr. Huseyin Gallo and Dr. Hunter, lithostripper, as an outpatient for possible repeated ablation. The patient is stable and discharged home today with Eliquis 2.5 mg twice a day and amiodarone 200 mg b.i.d. and then follow up with cardiology for adjustment of medication. Patient is stable and discharged home today. Job#: [id number]
== END 2018-05-08 10:23 | disposition home or self-care (01) | DRG 287 ==
LOC: ER 20:27 → CATH LAB 21:52 → ICU 23:12 → MED/SURG 05-07 22:40
PROVIDERS: ADMIT Internal Medicine; ATTEND Internal Medicine
PROC: 4A023N7 Measurement of Cardiac Sampling and Pressure, Left Heart, Percutaneous Approach (ICD-10-PCS; principal; 2018-05-06)
PROC: B2111ZZ Fluoroscopy of Multiple Coronary Arteries using Low Osmolar Contrast (ICD-10-PCS; 2018-05-06)
PROC: B2151ZZ Fluoroscopy of Left Heart using Low Osmolar Contrast (ICD-10-PCS; 2018-05-06)
DX: I48.91 Unspecified atrial fibrillation (principal); I20.0 Unstable angina; I10 Essential (primary) hypertension; E78.00 Pure hypercholesterolemia, unspecified; E11.9 Type 2 diabetes mellitus without complications; I95.9 Hypotension, unspecified; R00.1 Bradycardia, unspecified; T50.905A Adverse effect of unspecified drugs, medicaments and biological substances, initial encounter; Z98.84 Bariatric surgery status; R55 Syncope and collapse; Z79.01 Long term (current) use of anticoagulants; Z79.84 Long term (current) use of oral hypoglycemic drugs; Z79.82 Long term (current) use of aspirin
CPT/HCPCS: 36415; 51700; 71045; 80048; 80053; 80061; 81001; 82550; 82553; 82948; 83735; 83880; 84443; 84484; 85025; 85610; 85730; 87086; 93005; 96361; 96366; 96372; 99284; J0583; J2001; J2250; J7030; Q9967

== ENCOUNTER → 2018-08-07 | Outpatient (CLI) | payer MEDICARE ==
[~2018-08-07] MED LIST changes: +MULTAQ400 MG PO; +[UNRECOGNIZED DRUG - OTHER] PO
--- NOTE | 2018-08-07 12:51 | Diagnostic Imaging Report ---
RADIOGRAPH(S) OF THE ABDOMEN AND PELVIS, 2 view(s) HISTORY: Calculus of kidney, right COMPARISON: Images from abdomen and pelvic radiographs February 01, 2018 FINDINGS: No specific evidence of obstruction or ileus. Metallic clips in the right upper quadrant of the abdomen are compatible with prior cholecystectomy. Radiopaque suture in the left upper quadrant the abdomen. Stable 3 mm calcification in the left hemipelvis. The bones are partially obscured by stool and overlying bowel gas. IMPRESSION: 1. Nonobstructive bowel gas pattern. 2. Stable nonspecific 3 mm calcification left hemipelvis, considerations include a urinary tract calcification versus a phlebolith. Signed by: Dr. Anthony Murdock D.O., M.M.M. on 08/07/2018 12:47 PM
== END ==
LOC: RAD 10:53
PROVIDERS: ATTEND Urology
DX: N20.0 Calculus of kidney (principal)
CPT/HCPCS: 74018

== ENCOUNTER → 2018-11-02 | Outpatient (CLI) | payer MEDICARE ==
--- NOTE | 2018-11-02 15:09 | Diagnostic Imaging Report ---
Abdomen, 1 view. History: Renal calculus. Comparison: 08/07/2018. Findings: Air is scattered throughout nondilated small and large bowel. There are no masses or abnormal calcifications. Suture material is again seen in the left lower abdomen. Calcification previously noted in the left pelvis is not seen on today's exam. The osseous structures are intact. IMPRESSION: Non-specific bowel gas pattern. No visible stones. Signed by: Zach Montejo on 11/02/2018 3:06 PM
== END ==
LOC: RAD 13:54
PROVIDERS: ATTEND Urology
DX: N20.0 Calculus of kidney (principal)
CPT/HCPCS: 74018

== ENCOUNTER → 2018-11-21 | Outpatient (CLI) | payer MEDICARE | LOC: MAMMO 12:35 | PROVIDERS: ATTEND Internal Medicine | DX: Z12.31 Encounter for screening mammogram for malignant neoplasm of breast (principal) | CPT/HCPCS: 77067 ==

== ENCOUNTER → 2019-01-05 | Day surgery (SDC) | payer MEDICARE, OTHER ==
[2019-01-03 12:21] LABS: BASOPHILS % 0.3 % (0.0-1.0); EOSINOPHILS # (AUTO) 0.1 (0.0-0.4); EOSINOPHILS % 1.2 % (0.0-6.0); HEMATOCRIT 35.5 % (34.2-44.1); HEMOGLOBIN 11.4 g/dL (12.0-16.0); LYMPHOCYTES # (AUTO) 1.4 (1.0-3.2); LYMPHOCYTES % 21.4 % (18.0-39.1); MEAN CORPUSCULAR HEMOGLOBIN 27.7 pg (28-32); MEAN CORPUSCULAR HGB CONC 32.1 g/dL (31-35); MEAN CORPUSCULAR VOLUME 86.4 fL (81-99); MONOCYTES # (AUTO) 0.8 (0.2-0.8); MONOCYTES % 11.4 % (4.4-11.3); NEUTROPHILS # (AUTO) 4.3 (2.1-6.9); NEUTROPHILS % 65.4 % (38.7-80.0); PLATELET COUNT 224 x10e3/uL (140-360); RED BLOOD COUNT 4.11 x10e6/uL (3.6-5.1); RED CELL DISTRIBUTION WIDTH 14.9 % (11.7-14.4)
--- NOTE | 2019-01-03 13:55 | Diagnostic Imaging Report ---
EXAMINATION: PA and lateral views of the chest. COMPARISON: Portable chest 05/06/2018, portable chest 05/08/2017 CLINICAL HISTORY: Preop for diverticulitis DISCUSSION: Lines/tubes: None. Lungs: The lungs are well inflated. Stable 4-5 mm nodular density in the right upper lobe since 2017, likely representing a calcified granuloma. There is no evidence of pneumonia or pulmonary edema. Pleura: There is no pleural effusion or pneumothorax. Heart and mediastinum: Cardiomediastinal silhouette is unremarkable. Pulmonary vasculature is normal. Bones and soft tissues: No acute bony abnormalities. Degenerative changes in the thoracic spine IMPRESSION: No acute cardiopulmonary abnormalities. Signed by: Dr. Dk Mason M.D. on 01/03/2019 1:51 PM
[~2019-01-05] MED LIST changes: +HYOSCYAMINE 0.125 MG TAB ONE; +LIDOCAINE HCL 2% LOCAL INJ 5 ML SDV VIAL INJ ONE; +MIDAZOLAM HCL 2 MG/2 ML VIAL ONE; +PROPOFOL IV EMULSION 10 MG/ML 50 ML VIAL ONE; +eliquis PO
[2019-01-05 09:30] VITALS: BP 144/76
[2019-01-05 09:51] LABS: WBC,FECAL (FECAL LACTOFERRIN) POSITIVE (NEGATIVE)
--- NOTE | 2019-01-05 11:12 | Operative Report ---
DATE OF PROCEDURE: 01/05/2019 SURGEON: Froy Luz MD PROCEDURE PERFORMED: Colonoscopy with polypectomy. INDICATIONS FOR COLONOSCOPY: Surveillance colonoscopy, personal history of numerous colon polyps. MEDICATIONS: The patient was done under MAC, please see anesthesiologist's note. PROCEDURE IN DETAIL: With the patient in left lateral decubitus position, the pediatric Olympus fiberoptic colonoscope was inserted into the rectum with ease all the way to the distal sigmoid colon. It could not be advanced any further as the sigmoid colon was sharply angulated and fixed. The scope was then withdrawn and an EGD scope was inserted and with some difficulty it was advanced all the way to the hepatic flexure. It could not be advanced any further as the scope was looped in the left colon. The scope was then withdrawn slowly. One polyp was snared from the transverse colon. Five polyps were removed per snare electrocautery from the descending colon. One polypectomy site was hemoclipped. Some minimal diverticulosis was noted in the sigmoid colon. One polyp was hot biopsied from the sigmoid colon and the site was hemoclipped. The rectum grossly appeared to be within normal limits. The scope was then retroflexed into the distal rectum. The area around the dentate line appeared to be within normal limits. The scope was then straightened out and was subsequently withdrawn. The patient tolerated the procedure well. IMPRESSION: 1. Sigmoid colon sharply angulated and tortuous negotiated only with EGD scope which we were able to advanced only to the hepatic flexure. Part of colon examined was also suboptimally evaluated due to the tortuosity of the patient's colon. 2. Transverse colon polyp snared. 3. Descending colon polyps x5, removed per snare electrocautery. One polypectomy site was hemoclipped. 4. Diverticulosis. 5. Sigmoid colon polyp hot biopsied and site hemoclipped. PLAN: Follow up histology. Initiate high-fiber, low-fat diet. Initiate high-fiber supplement. The patient might benefit from a virtual colonoscopy or an air-contrast barium enema. Froy Luz MD [facility] – [place] /[id number] cc: Naomie Morales MD
[2019-01-05 14:50] LABS: C DIFFICILE TOXIN A&B AMP PROB NEGATIVE (NEGATIVE)
== END | disposition home or self-care (01) ==
LOC: OR 05:55
PROVIDERS: ATTEND Internal Medicine Gastroenterology
DX: K57.30 Diverticulosis of large intestine without perforation or abscess without bleeding (principal); Z86.010 Personal history of colon polyps; D12.4 Benign neoplasm of descending colon; D12.5 Benign neoplasm of sigmoid colon; D12.3 Benign neoplasm of transverse colon; I10 Essential (primary) hypertension; E11.9 Type 2 diabetes mellitus without complications; K21.9 Gastro-esophageal reflux disease without esophagitis; Z87.11 Personal history of peptic ulcer disease; K63.5 Polyp of colon; Z01.812 Encounter for preprocedural laboratory examination; Z01.811 Encounter for preprocedural respiratory examination; Z79.01 Long term (current) use of anticoagulants; Z79.84 Long term (current) use of oral hypoglycemic drugs
CPT/HCPCS: 36415 ×2; 45384; 45385; 71046; 82948; 83630; 83993; 85025; 87045; 87177; 87328; 87493; J2001; J2250; J2704; 45378

== ENCOUNTER → 2019-04-24 | Outpatient (CLI) | payer MEDICARE ==
[~2019-04-24] MED LIST changes: -HYOSCYAMINE 0.125 MG TAB ONE; -LIDOCAINE HCL 2% LOCAL INJ 5 ML SDV VIAL INJ ONE; -MIDAZOLAM HCL 2 MG/2 ML VIAL ONE; -PROPOFOL IV EMULSION 10 MG/ML 50 ML VIAL ONE
--- NOTE | 2019-04-24 14:27 | Diagnostic Imaging Report ---
Exam: KUB - 2 views Indication: Renal calculi Comparison: KUB of 11/02/2018 Findings: No radiographically apparent renal calculi. Surgical chain sutures in the left abdomen. Nonobstructive bowel gas pattern. No free air. Right upper quadrant surgical clips. Mild degenerative changes of the spine and both hip joints. Impression: No radiographically apparent renal calculi. Signed by: Chase Elliott MD on 04/24/2019 2:24 PM
== END ==
LOC: RAD 13:50
PROVIDERS: ATTEND Urology
DX: N20.0 Calculus of kidney (principal)
CPT/HCPCS: 74018

== ENCOUNTER → 2019-11-27 | Outpatient (CLI) | payer OTHER ==
--- NOTE | 2019-11-28 08:59 | Diagnostic Imaging Report ---
EXAM: Bone density study HISTORY: ^OSTEOPOROSIS SCREENING FINDINGS: LEFT FEMORAL NECK: Bone mineral density measurement: 0.604 gm/cm2 Standard deviation from young adult population (T score): -2.2 Standard deviation for age adjusted population (Z score): -0.2 LUMBAR SPINE: Bone mineral density measurement: 0.887 gm/cm2 Standard deviation from young adult population (T score): 1.5 Standard deviation for age adjusted population (Z score): 0.8 IMPRESSION: Bone mineralization of the left femoral neck: Osteopenia. Bone mineralization of the lumbar spine: Osteopenia. DIAGNOSTIC CRITERIA: Normal: BMD measurement less than one standard deviation from young adult population Osteopenia: BMD measurement between one and 2.5 standard deviations corresponds to a 1 - 2x increased risk of an osteoporotic fracture of the lumbar spine as compared to the young adult population. Osteoporosis: BMD measurement greater than 2.5 standard deviations corresponds to a 2x increased risk of an osteoporotic fracture of the lumbar spine as compared to the young adult population. Severe osteoporosis: Osteoporosis and one or more fragility fractures Signed by: Garrett Caraballo MD on 11/28/2019 8:56 AM
== END ==
LOC: MAMMO 10:47
PROVIDERS: ATTEND Internal Medicine
DX: Z12.31 Encounter for screening mammogram for malignant neoplasm of breast (principal); Z13.820 Encounter for screening for osteoporosis
CPT/HCPCS: 77067; 77080

== ENCOUNTER → 2020-01-11 | Day surgery (SDC) | payer OTHER ==
[2020-01-07 12:53] LABS: BASOPHILS % 0.5 % (0.0-1.0); EOSINOPHILS # (AUTO) 0.1 (0.0-0.4); EOSINOPHILS % 1.1 % (0.0-6.0); HEMATOCRIT 42.1 % (34.2-44.1); HEMOGLOBIN 13.5 g/dL (12.0-16.0); LYMPHOCYTES # (AUTO) 1.5 (1.0-3.2); LYMPHOCYTES % 26.7 % (18.0-39.1); MEAN CORPUSCULAR HEMOGLOBIN 29.1 pg (28-32); MEAN CORPUSCULAR HGB CONC 32.1 g/dL (31-35); MEAN CORPUSCULAR VOLUME 90.7 fL (81-99); MONOCYTES # (AUTO) 0.6 (0.2-0.8); NEUTROPHILS # (AUTO) 3.4 (2.1-6.9); NEUTROPHILS % 60.5 % (38.7-80.0); PLATELET COUNT 170 x10e3/uL (140-360); RED BLOOD COUNT 4.64 x10e6/uL (3.6-5.1); RED CELL DISTRIBUTION WIDTH 13.2 % (11.7-14.4)
[~2020-01-11] MED LIST changes: +BENICAR20 MG PO; +EPHEDRINE SULFATE INJ 50 MG/ML VIAL ONE; +ETOMIDATE 2 MG/ML 10 ML INJ IV ONE; +GLUCAGON FOR INJ 1 MG VIAL ONE; +HYOSCYAMINE 0.125 MG TAB ONE; +LIDOCAINE HCL 2% LOCAL INJ 5 ML SDV VIAL INJ ONE; +ONDANSETRON HCL INJ 2MG/ML 2ML 2 MG/ML VIAL ONE; +PROPOFOL IV EMULSION 10 MG/ML 20 ML VIAL ONE
[2020-01-11 10:05] VITALS: BP 156/79
[2020-01-11 14:47] LABS: C DIFFICILE TOXIN A&B AMP PROB NEGATIVE (NEGATIVE); WBC,FECAL (FECAL LACTOFERRIN) NEGATIVE (NEGATIVE)
== END | disposition home or self-care (01) ==
LOC: OR 07:00
PROVIDERS: ATTEND Internal Medicine Gastroenterology
DX: K63.5 Polyp of colon (principal); K52.9 Noninfective gastroenteritis and colitis, unspecified; K57.30 Diverticulosis of large intestine without perforation or abscess without bleeding; K62.89 Other specified diseases of anus and rectum; K64.8 Other hemorrhoids; K21.9 Gastro-esophageal reflux disease without esophagitis; I10 Essential (primary) hypertension; I48.91 Unspecified atrial fibrillation; I48.92 Unspecified atrial flutter; E11.9 Type 2 diabetes mellitus without complications; R07.9 Chest pain, unspecified; I49.1 Atrial premature depolarization; Z01.810 Encounter for preprocedural cardiovascular examination; Z01.812 Encounter for preprocedural laboratory examination; Z11.59 Encounter for screening for other viral diseases; Z79.84 Long term (current) use of oral hypoglycemic drugs; Z79.02 Long term (current) use of antithrombotics/antiplatelets
CPT/HCPCS: 36415; 45378; 45380; 45384; 45385; 82948; 83630; 83993; 85025; 87045; 87177; 87328; 87493; 93005; J1610; J2001; J2405; U0002

== ENCOUNTER → 2020-12-09 | Outpatient (CLI) | payer OTHER ==
[~2020-12-09] MED LIST changes: -EPHEDRINE SULFATE INJ 50 MG/ML VIAL ONE; -ETOMIDATE 2 MG/ML 10 ML INJ IV ONE; -GLUCAGON FOR INJ 1 MG VIAL ONE; -HYOSCYAMINE 0.125 MG TAB ONE; -LIDOCAINE HCL 2% LOCAL INJ 5 ML SDV VIAL INJ ONE; -ONDANSETRON HCL INJ 2MG/ML 2ML 2 MG/ML VIAL ONE; -PROPOFOL IV EMULSION 10 MG/ML 20 ML VIAL ONE
== END ==
LOC: MAMMO 13:15
PROVIDERS: ATTEND Internal Medicine
DX: Z12.31 Encounter for screening mammogram for malignant neoplasm of breast (principal)
CPT/HCPCS: 77067

== ENCOUNTER → 2021-01-01 | Outpatient (CLI) | payer OTHER | LOC: US 09:39 | PROVIDERS: ATTEND Internal Medicine | DX: R92.2 Inconclusive mammogram (principal) ==

== ENCOUNTER → 2022-01-04 | Outpatient (CLI) | payer MEDICARE | LOC: MAMMO 12:38 | PROVIDERS: ATTEND Internal Medicine | DX: Z12.31 Encounter for screening mammogram for malignant neoplasm of breast (principal) | CPT/HCPCS: 77067 ==

== ENCOUNTER 2022-02-17 20:35 | Emergency (ER) | payer MEDICARE, OTHER ==
[~2022-02-17] VITALS: Ht 167.6 cm; Wt 62.6 kg
== END 2022-02-17 23:21 | disposition home or self-care (01) ==
LOC: FSED 20:50
DX: S00.83XA Contusion of other part of head, initial encounter (principal); W01.198A Fall on same level from slipping, tripping and stumbling with subsequent striking against other object, initial encounter; Y92.098 Other place in other non-institutional residence as the place of occurrence of the external cause; I10 Essential (primary) hypertension; E11.9 Type 2 diabetes mellitus without complications; I48.91 Unspecified atrial fibrillation; Z79.01 Long term (current) use of anticoagulants; F41.9 Anxiety disorder, unspecified; Z98.84 Bariatric surgery status
CPT/HCPCS: 70450; 99283

== ENCOUNTER → 2024-02-20 | Outpatient (REF) | payer MEDICARE | LOC: MAMMO 09:38 | PROVIDERS: ATTEND Internal Medicine | DX: Z12.31 Encounter for screening mammogram for malignant neoplasm of breast (principal); M85.88 Other specified disorders of bone density and structure, other site; Z78.0 Asymptomatic menopausal state | CPT/HCPCS: 77067; 77080 ==

== ENCOUNTER → 2025-03-21 | Outpatient (REF) | payer MEDICARE | LOC: MAMMO 09:24 | PROVIDERS: ATTEND Internal Medicine | DX: Z12.31 Encounter for screening mammogram for malignant neoplasm of breast (principal) | CPT/HCPCS: 77067 ==